=== PATIENT | male | born 1975 | race African-American/Black ===

== ENCOUNTER 2016-11-29 10:41 | Emergency (ER) | payer BC ==
--- NOTE | ~2016-11-29 | MR112 ---
[facility] A Service of [facility] & [facility] RADIOLOGY TEXT RESULTS PATIENT: CARMEN PERSAUD LOCATION: [place] : 71 UNIT #: [id number] AGE: [address]: Hesham Suazo MD SEX: M ORDER DR: [id number] [facility] [address] [place], [place] [address] [id number] E MR#: [id number] Acc #: [id number] NAME: CARMEN PERSAUD : 1975 SEX: M STUDY DATE/TIME: 11/29/2016 11:28 UNIT: [facility] ROOM: STUDY DESCRIPTION: MR Lumbar WWo Contrast Attending Physician: Hesham Suazo M.D. Ordering Physician: Hesham Suazo M.D. Primary Care Physician: No Primary Care Physician MRI CENTER REPORT This report is preliminary unless electronic signature is present. EXAM Lumbar spine MRI with and without contrast. HISTORY Tingling in both legs and feet with no history of recent trauma. Cold sensation and numbness in both lower extremities for the past 5 days. Concern for epidural abscess. TECHNIQUE Multiplanar imaging of the lumbar spine was performed with and without contrast. 17 mL of MultiHance was used. FINDINGS Alignment is satisfactory. At L1-2 and L2-3, no abnormalities are seen. At L3-4, there is disc degeneration with mild disc space narrowing. There is an asymmetric focal disc protrusion in the foramen on the left. This narrows the foramen and contacts, but does not compress, the exiting nerve root. At L4-5, the disc space is narrowed and there is disc degeneration with broad-based disc bulging. It is asymmetrically worse to the right than to the left and contacts the nerve root on the right and nearly obliterates fat surrounding the right sided root. The L5-S1 disc is unremarkable. There is no evidence of epidural abscess or other epidural collection. Postcontrast imaging shows no abnormal enhancement. IMPRESSION There is lateral disc protrusion on the left at L3-4 with moderate foraminal narrowing and there is lateral disc protrusion on the right at L4-5 with moderately severe foraminal narrowing. Potential source for lumbar radicular symptoms on either side. Otherwise negative examination. No evidence of epidural abscess. [facility] A Service of [facility] & [facility] RADIOLOGY TEXT RESULTS PATIENT: CARMEN PERSAUD LOCATION: [facility] : [birth year] UNIT #: [id number] AGE: [address]: Hesham Suazo MD SEX: M ORDER DR: STAT * RESULT Dictated by... Isaias Roldan M.D. THIS IS AN ELECTRONICALLY VERIFIED REPORT Isaias Roldan M.D. at 11/29/2016 4:39 PM CECEF/lori TD: 11/29/2016 13:20 JOB #: [id number] MRI CENTER REPORT Page 1 of 1 COPY
[~2016-11-29 10:41] MED LIST: FLEXERIL PO; FLEXERIL10 M1 PO; LORTAB 10-5001 EACH PO; MOTRIN400 MG PO
[2016-11-29 11:22] LABS: BASOPHIL% 0.4 % (0-2.5); EOSINOPHIL% 0.6 % (0.0-7.0); HEMATOCRIT 49.4 % (38.0-50.0); HEMOGLOBIN 16.5 gm/dL (13.0-16.0); LYMPHOCYTE# 1.4 X10e3 (1.0-3.5); LYMPHOCYTE% 21.4 % (17.0-45.0); MEAN CELL VOLUME 96.9 FL (83-96); MEAN CORPUSCULAR HEMOGLOBIN 32.3 PG (28-34); MEAN CORPUSCULAR HGB CONC 33.3 g/dL (30-36); MEAN PLATELET VOLUME 8.8 FL (6.5-11.5); MONOCYTE# 0.4 X10e3 (0-1.0); MONOCYTE% 5.9 % (3.0-12.0); NEUTROPHIL# 4.7 X10e3 (1.5-7.1); NEUTROPHIL% 71.7 % (40-75); PLATELET COUNT 193 X10e3 (140-420); RED CELL DISTRIBUTION WIDTH 13.7 % (11.0-15.5); WHITE BLOOD COUNT 6.5 X10e3 (4.0-10.5)
[2016-11-29 11:46] LABS: BUN/CREATININE RATIO 16.66; CALCIUM SERUM 9.2 mg/dL (8.4-10.2); CREATININE SERUM 1.2 mg/dL (0.6-1.4); DIFF IND NO; GLOM FILT RATE Estimated 85.3 mL/min (>60); POTASSIUM 3.7 mmol/L (3.5-5.1)
[2016-11-29 11:56] LABS: POC - GFR >60.0 mL/min (>60)
== END 2016-11-29 13:59 | disposition home or self-care (01) ==
LOC: CED 10:41
PROVIDERS: Emergency Medicine
DX: M51.17 Intervertebral disc disorders with radiculopathy, lumbosacral region (principal); F17.200 Nicotine dependence, unspecified, uncomplicated
CPT/HCPCS: 36415; 72158; 80048; 82550; 82565; 85025; 96361; 96374; 99284; A9577; J1885

== ENCOUNTER 2016-12-05 19:05 | Emergency (ER) | payer OTHER ==
--- NOTE | ~2016-12-05 | CR58 ---
[facility] A Service of [facility] & [facility] RADIOLOGY TEXT RESULTS PATIENT: CARMEN PERSAUD LOCATION: [facility] : 71 UNIT #: [id number] AGE: [address]: Arlin Ni APRN SEX: M ORDER DR: [id number] [facility] [address] [place], [place] [address] [id number] E MR#: [id number] Acc #: [id number] NAME: CARMEN PERSAUD : 1975 SEX: M STUDY DATE/TIME: 12/05/2016 19:08 UNIT: [facility] ROOM: STUDY DESCRIPTION: CR Cervical Spine 2 or 3 Views Attending Physician: Arlin Ni A.P.R.N. Ordering Physician: Ed Doctor [id number] [facility] Primary Care Physician: No Primary Care Physician MEDICAL IMAGING REPORT This report is preliminary unless electronic signature is present EXAM Cervical spine 3 views HISTORY [place] a pop in neck today. No trauma. FINDINGS 3 views of the cervical spine demonstrate moderate disc space narrowing at C6-C7 and mild disc space narrowing at C5-C6. Moderate sized anterior marginal osteophytes at C5-C6 and C6-C7. Straightening of the normal cervical lordosis. No fracture or subluxation or precervical soft tissue swelling. IMPRESSION No acute findings. [id number] degenerative and hypertrophic changes at C5-C6 and C6-C7. Dictated by... Ld Martínez M.D. THIS IS AN ELECTRONICALLY VERIFIED REPORT Ld Martínez M.D. at 12/06/2016 12:05 AM TEAGAN/nabil TD: 12/05/2016 22:17 JOB #: [id number] MEDICAL IMAGING REPORT Page 1 of 1 COPY
== END 2016-12-05 20:26 | disposition home or self-care (01) ==
LOC: CED 19:05
DX: G89.29 Other chronic pain (principal); M54.2 Cervicalgia; F17.210 Nicotine dependence, cigarettes, uncomplicated
CPT/HCPCS: 72040; 96372; 99283; J1885